=== PATIENT | female | born 1965 | race Caucasian/White ===

== ENCOUNTER 2023-04-26 21:20 | Emergency (ER) | payer BC ==
[2023-04-26 21:46] VITALS: BP 147/100; PULSE 70; RESP 18; TEMP 97.8; BMI 25.7
[2023-04-26] MEDS ORDERED: predniSONE 20 MG TABLET (UD) PO ONE (21:55)
[2023-04-26] MEDS ORDERED: diphenhydrAMINE HCL 50 MG CAPSULE PO ONE (21:56)
[2023-04-26] MEDS ORDERED: diphenhydrAMINE HCL 25 MG CAPSULE (FP) PO ONE (21:57)
[2023-04-26] MEDS ORDERED: predniSONE 20 MG TABLET (UD) ONE (21:57)
== END 2023-04-26 22:01 | disposition home or self-care (01) ==
LOC: FER 21:20
DX: T78.40XA Allergy, unspecified, initial encounter (principal); L50.9 Urticaria, unspecified; R21 Rash and other nonspecific skin eruption
CPT/HCPCS: 99283-25